=== PATIENT | female | born 1955 | race Caucasian/White ===

== ENCOUNTER 2017-05-05 12:05 | Day surgery (SDC) | payer OTHER ==
[~2017-05-05] VITALS: Ht 172.7 cm; Wt 134.0 kg
[~2017-05-05 12:05] MED LIST: ACIPHEX20 MG PO; DOXYCYCLINE HY100 M3 PO; MOBIC15 MG PO; ORACEA40 MG PO; PROZAC20 MG PO; PROZAC40 MG PO; SONATA10 MG PO; SOOLANTRA30 GM TP; ULTRAM50 MG PO; VESICARE10 MG PO; VESICARE5 MG PO
[2017-05-05 12:48] VITALS: BP 163/76
[2017-05-05 17:25] VITALS: BP 138/59
[2017-05-05 18:26] VITALS: BP 128/63
== END 2017-05-05 18:35 | disposition home or self-care (01) ==
LOC: SDC 12:05 → 2SOUTH 15:07 → SDC 18:35
PROVIDERS: Surgery
PROC: 0DP64CZ Removal of Extraluminal Device from Stomach, Percutaneous Endoscopic Approach (ICD-10-PCS; principal; 2017-05-05)
DX: R13.10 Dysphagia, unspecified (principal); E66.01 Morbid (severe) obesity due to excess calories; Z68.42 Body mass index [BMI] 45.0-49.9, adult; G47.33 Obstructive sleep apnea (adult) (pediatric); K21.9 Gastro-esophageal reflux disease without esophagitis; M19.90 Unspecified osteoarthritis, unspecified site; Z98.84 Bariatric surgery status; Z88.2 Allergy status to sulfonamides; Z88.8 Allergy status to other drugs, medicaments and biological substances
CPT/HCPCS: 82948; J0330; J0690; J1100; J1644; J1885; J2250; J2405; J2710; J3010; S0020

== ENCOUNTER → 2017-05-30 | Outpatient (CLI) | payer OTHER | END | disposition home or self-care (01) | LOC: RAD 10:02 | DX: M77.32 Calcaneal spur, left foot (principal); M81.0 Age-related osteoporosis without current pathological fracture | CPT/HCPCS: 73630 ==

== ENCOUNTER → 2017-09-26 | Outpatient (CLI) | payer OTHER | END | disposition home or self-care (01) | LOC: CDC 09:43 | DX: Z01.810 Encounter for preprocedural cardiovascular examination (principal); K43.2 Incisional hernia without obstruction or gangrene; R00.1 Bradycardia, unspecified | CPT/HCPCS: 93000 ==

== ENCOUNTER 2017-10-09 07:39 | Day surgery (SDC) | payer OTHER ==
[~2017-10-09] VITALS: Ht 172.7 cm; Wt 151.1 kg
[~2017-10-09 07:39] MED LIST changes: +STOOL SOFTENER100 MG PO; +VITAMIN B-12500 MC5 SL
[2017-10-09 08:24] VITALS: BP 134/69
[2017-10-09 14:30] VITALS: BP 121/57
[2017-10-09 19:02] VITALS: BP 134/60
[2017-10-09 23:33] VITALS: BP 129/67
[2017-10-10 03:49] VITALS: BP 121/66
[2017-10-10 07:16] VITALS: BP 119/75
[2017-10-10] MEDS ORDERED: HYDROCODON-ACE1 EAC7 PO (08:43)
== END 2017-10-10 11:02 | disposition home or self-care (01) ==
LOC: SDC 07:39 → 2SOUTH 11:41 → 2EAST 11:41 → 2SOUTH 11:41 → ENRESERV 11:42 → SDC 13:50 → 2EAST 14:02 → SDC 14:18 → 2EAST 10-10 11:02
DX: K43.2 Incisional hernia without obstruction or gangrene (principal); K66.0 Peritoneal adhesions (postprocedural) (postinfection); K21.9 Gastro-esophageal reflux disease without esophagitis; G47.30 Sleep apnea, unspecified; M19.90 Unspecified osteoarthritis, unspecified site; Z98.890 Other specified postprocedural states; Z90.710 Acquired absence of both cervix and uterus; Z68.42 Body mass index [BMI] 45.0-49.9, adult; Z82.49 Family history of ischemic heart disease and other diseases of the circulatory system; Z80.3 Family history of malignant neoplasm of breast; Z88.2 Allergy status to sulfonamides; Z88.8 Allergy status to other drugs, medicaments and biological substances
CPT/HCPCS: C1781; G0378; J0131; J0330; J0690; J1100; J1170; J1885; J2250; J2405; J3010; J7120